=== PATIENT | female | born 1970 | race African-American/Black ===

== ENCOUNTER 2018-09-06 00:56 | Emergency (ER) | payer BC ==
[~2018-09-06] VITALS: Ht 162.6 cm; Wt 57.2 kg
[~2018-09-06 00:56] MED LIST: LORTAB 5 OR; METFORMIN500 MG PO; ULTRAM50 M1 PO
[2018-09-06] MEDS ORDERED: VOLTAREN - GENE75 MG PO (02:18)
[2018-09-06 02:28] VITALS: BP 110/69
== END 2018-09-06 02:30 | disposition home or self-care (01) | DRG 554 ==
LOC: ED 00:56
DX: M19.011 Primary osteoarthritis, right shoulder (principal); M79.18 Myalgia, other site; M25.511 Pain in right shoulder; M54.2 Cervicalgia

== ENCOUNTER 2020-02-21 00:55 | Emergency (ER) | payer BC ==
[~2020-02-21 00:55] MED LIST changes: +VOLTAREN - GENE75 MG PO
[2020-02-21] MEDS ORDERED: VOLTAREN - GENE75 MG PO (01:34)
[2020-02-21 01:38] VITALS: BP 122/77
== END 2020-02-21 01:45 | disposition home or self-care (01) | DRG 554 ==
LOC: ED 00:55
DX: M19.011 Primary osteoarthritis, right shoulder (principal); E11.40 Type 2 diabetes mellitus with diabetic neuropathy, unspecified; Z79.84 Long term (current) use of oral hypoglycemic drugs

== ENCOUNTER 2020-11-29 14:39 | Emergency (ER) | payer BC ==
[~2020-11-29] VITALS: Ht 162.6 cm; Wt 60.5 kg
[2020-11-29 15:16] LABS: URINE BILIRUBIN - DIPSTICK NEGATIVE (NEGATIVE); URINE BLOOD DIPSTICK NEGATIVE (NEGATIVE); URINE COLOR YELLOW; URINE GLUCOSE - DIPSTICK >=1000 mg/dL (NEGATIVE); URINE KETONE NEGATIVE (NEGATIVE); URINE LEUK ESTERASE NEGATIVE (NEGATIVE); URINE NITRITE - DIPSTICK NEGATIVE (Negative); URINE PROTEIN - DIPSTICK NEGATIVE (NEG-TRACE); URINE UROBILINOGEN - DIPSTICK 0.2 E.U./dL (0.2)
[2020-11-29 15:23] LABS: HEMATOCRIT 37.9 % (37.0-47.0); HEMOGLOBIN 12.2 g/dl (12.0-16.0); IMMATURE GRANULOCYTES 0.3 % (0.0-5.0); MEAN CELL VOLUME 100.3 fL CALC (80.0-100.0); MEAN CORPUSCULAR HGB 32.3 pG CALC (26.0-32.0); MEAN CORPUSCULAR HGB CONC 32.2 g/dL CAL (32.0-36.0); NEUT# 3.64 thou/uL (2.00-7.15); RED BLOOD COUNT 3.78 mill/uL (4.20-5.60); RED CELL DISTRI WIDTH 11.6 % (11.5-15.5)
[2020-11-29 15:35] LABS: BILIRUBIN, TOTAL 0.4 mg/dL (0.0-1.4); BUN 8 mg/dL (7-17); BUN/CREATININE RATIO 21 (12-20 (CALC)); CHLORIDE 105 mmol/l (95-108); CREATININE 0.4 mg/dL (0.5-1.0); GFR > 60 ML/MIN (>=60 (CALC)); GFR FOR AFR.AMER. > 60 ML/MIN (>=60 (CALC)); POTASSIUM 3.9 mmol/l (3.5-5.1); SGOT/AST 28 u/l (14-36); SODIUM 140 mmol/l (137-146); TOTAL PROTEIN 7.8 g/dL (6.3-8.2)
[2020-11-29 15:37] LABS: ALBUMIN 4.5 g/dL (3.2-5.0); ALKALINE PHOSPHATASE 103 u/l (38-126); ANION GAP 13 (6-22 (CALC)); CARBON DIOXIDE 26 mmol/l (22-30)
[2020-11-29] MEDS ORDERED: GENTAMICIN SULF5 ML OU (17:30)
[2020-11-29] MEDS ORDERED: CLARITIN10 M1 PO (17:31)
[2020-11-29 17:46] VITALS: BP 102/64
== END 2020-11-29 18:02 | disposition home or self-care (01) | DRG 918 ==
LOC: ED 14:39
PROVIDERS: Emergency Medicine
DX: T54.91XA Toxic effect of unspecified corrosive substance, accidental (unintentional), initial encounter (principal); H53.8 Other visual disturbances; E11.40 Type 2 diabetes mellitus with diabetic neuropathy, unspecified; Y92.009 Unspecified place in unspecified non-institutional (private) residence as the place of occurrence of the external cause; Z79.84 Long term (current) use of oral hypoglycemic drugs

== ENCOUNTER 2021-04-13 17:45 | Emergency (ER) | payer BC ==
[~2021-04-13] VITALS: Ht 162.6 cm; Wt 53.0 kg
[~2021-04-13 17:45] MED LIST changes: +CLARITIN10 M1 PO; +GENTAMICIN SULF5 ML OU
[2021-04-13] MEDS ORDERED: LIPITOR20 M1 PO (18:02)
[2021-04-13 18:31] VITALS: BP 128/76
== END 2021-04-13 18:42 | disposition home or self-care (01) | DRG 601 ==
LOC: ED 17:45
DX: N63.20 Unspecified lump in the left breast, unspecified quadrant (principal); N63.10 Unspecified lump in the right breast, unspecified quadrant; E11.42 Type 2 diabetes mellitus with diabetic polyneuropathy; Z79.84 Long term (current) use of oral hypoglycemic drugs

== ENCOUNTER 2022-06-29 22:31 | Emergency (ER) | payer BC ==
[~2022-06-29] VITALS: Ht 162.6 cm; Wt 58.1 kg
[~2022-06-29 22:31] MED LIST changes: +LIPITOR20 M1 PO
[2022-06-29 22:45] VITALS: BP 152/88
[2022-06-29 23:00] VITALS: BP 142/88
[2022-06-30] VITALS (11 sets, daily range): BP systolic 119–144; BP diastolic 70–107
[2022-06-30] MEDS ORDERED: GENTAMICIN SULF5 ML OU (00:20)
== END 2022-06-30 08:37 | disposition home or self-care (01) | DRG 918 ==
LOC: ED 22:31
DX: T54.91XA Toxic effect of unspecified corrosive substance, accidental (unintentional), initial encounter (principal); H10.213 Acute toxic conjunctivitis, bilateral; E11.40 Type 2 diabetes mellitus with diabetic neuropathy, unspecified; Y92.009 Unspecified place in unspecified non-institutional (private) residence as the place of occurrence of the external cause; Z79.84 Long term (current) use of oral hypoglycemic drugs

== ENCOUNTER 2022-12-30 14:26 | Emergency (ER) | payer BC ==
[2022-12-30] VITALS (7 sets, daily range): BP systolic 116–150; BP diastolic 81–99
[~2022-12-30] VITALS: Ht 162.6 cm; Wt 54.0 kg
[~2022-12-30 14:26] MED LIST changes: +METFORMIN500 M2 PO; -METFORMIN500 MG PO
[2022-12-30 16:38] LABS: BASO% 0.2 % (0-3); EOS% 0.2 % (0-8); HEMATOCRIT 42.5 % (37.0-47.0); HEMOGLOBIN 14.6 g/dl (12.0-16.0); LYMPH% 45.8 % (15-41); MEAN CELL VOLUME 95.7 fL CALC (80.0-100.0); MEAN CORPUSCULAR HGB 32.9 pG CALC (26.0-32.0); MEAN CORPUSCULAR HGB CONC 34.4 g/dL CAL (32.0-36.0); MONO% 4.7 % (2-13); NEUT# 2.5 thou/uL (2.00-7.15); NEUT% 49.1 % (42-76); RED BLOOD COUNT 4.44 mill/uL (4.20-5.60); RED CELL DISTRI WIDTH 10.9 % (11.5-15.5)
[2022-12-30 16:47] LABS: ALBUMIN 4.7 g/dL (3.2-5.0); ALKALINE PHOSPHATASE 152 u/l (38-126); ANION GAP 13 (6-22 (CALC)); BILIRUBIN, TOTAL 0.4 mg/dL (0.02-1.3); BUN 12 mg/dL (7-17); BUN/CREATININE RATIO 25 (12-20 (CALC)); CARBON DIOXIDE 26 mmol/l (22-30); CHLORIDE 96 mmol/l (95-108); CREATININE 0.5 mg/dL (0.5-1.0); GFR FOR AFR.AMER. > 60 ML/MIN (>=60 (CALC)); GFR OTHER RACES > 60 ML/MIN (>=60 (CALC)); POTASSIUM 4.4 mmol/l (3.5-5.1); SGOT/AST 29 u/l (14-36)
[2022-12-30 16:55] LABS: SODIUM 131 mmol/l (137-146)
[2022-12-30] MEDS ORDERED: LIPITOR40 M1 PO (18:17)
[2022-12-30] MEDS ORDERED: METFORMIN HCL1000 MG PO (18:17)
[2022-12-30] MEDS ORDERED: GABAPENTIN300 M2 PO (18:19)
== END 2022-12-30 20:37 | disposition home or self-care (01) | DRG 639 ==
LOC: ED 14:26
PROVIDERS: Family Medicine
DX: E11.65 Type 2 diabetes mellitus with hyperglycemia (principal); Z76.0 Encounter for issue of repeat prescription; Z79.4 Long term (current) use of insulin; E11.40 Type 2 diabetes mellitus with diabetic neuropathy, unspecified

== ENCOUNTER 2024-12-17 12:22 | Emergency (ER) | payer BC ==
[~2024-12-17] VITALS: Ht 162.6 cm; Wt 47.0 kg
[2024-12-17] VITALS (22 sets, daily range): BP systolic 121–150; BP diastolic 71–84
[~2024-12-17 12:22] MED LIST changes: +GABAPENTIN300 M2 PO; +LIPITOR40 M1 PO; +METFORMIN HCL1000 MG PO
[2024-12-17] MEDS ORDERED: ASPIRIN 81 MG/TAB PO ONE (12:35)
[2024-12-17 12:58] LABS: BASO% 0.4 % (0-3); EOS% 0.7 % (0-8); LYMPH% 46.2 % (15-41); MEAN CELL VOLUME 99.5 fL CALC (80.0-100.0); MEAN CORPUSCULAR HGB 33.5 pG CALC (26.0-32.0); MEAN CORPUSCULAR HGB CONC 33.7 g/dL CAL (32.0-36.0); MONO% 7.2 % (2-13); NEUT# 2.46 thou/uL (2.00-7.15); NEUT% 45.5 % (42-76); RED BLOOD COUNT 3.94 mill/uL (4.20-5.60); RED CELL DISTRI WIDTH 10.5 % (11.5-15.5)
[2024-12-17 13:06] LABS: HEMATOCRIT 39.2 % (37.0-47.0); HEMOGLOBIN 13.2 g/dl (12.0-16.0)
[2024-12-17 13:17] LABS: ALBUMIN 4.6 g/dL (3.2-5.0); ALKALINE PHOSPHATASE 106 u/l (38-126); ANION GAP 12 (6-22 (CALC)); BILIRUBIN, TOTAL 0.7 mg/dL (0.02-1.3); BUN 15 mg/dL (7-17); BUN/CREATININE RATIO 32 (12-20 (CALC)); CARBON DIOXIDE 27 mmol/l (22-30); CHLORIDE 100 mmol/l (95-108); CREATININE 0.5 mg/dL (0.5-1.0); ESTIMATED GFR 111 ML/MIN (>=90 (CALC)); POTASSIUM 4.1 mmol/l (3.5-5.1); SGOT/AST 36 u/l (14-36); SODIUM 134 mmol/l (137-146); TOTAL PROTEIN 7.8 g/dL (6.3-8.2)
[2024-12-17] MEDS ORDERED: INSULIN REGULAR (HUMAN) 100 UNIT/ML INJ IV ONE (14:40)
[2024-12-17] MEDS ORDERED: DRAMAMINE25 M1 PO (15:00)
[2024-12-17] MEDS ORDERED: MECLIZINE HCL 25 MG/TAB PO ONE (17:15)
== END 2024-12-17 17:49 | disposition left against medical advice (07) | DRG 313 ==
LOC: ED 12:22
PROVIDERS: Family Medicine
DX: R07.9 Chest pain, unspecified (principal); R42 Dizziness and giddiness; E11.40 Type 2 diabetes mellitus with diabetic neuropathy, unspecified; Z79.84 Long term (current) use of oral hypoglycemic drugs; Z53.29 Procedure and treatment not carried out because of patient's decision for other reasons